=== PATIENT | female | born 1955 | race Caucasian/White ===

== ENCOUNTER 2018-05-12 06:32 | Emergency (ER) | payer MEDICARE, MEDICAID ==
[~2018-05-12] VITALS: Ht 170.2 cm; Wt 90.3 kg
[2018-05-12 06:34] VITALS: BP 143/83
[2018-05-12] MEDS ORDERED: KETOROLAC 30 MG/1 ML ONE (08:18)
[2018-05-12] MEDS ORDERED: METHOCARBAMOL 750 MG TABLET ONE (08:18)
[2018-05-12] MEDS ORDERED: METHOCARBAMOL 750 MG TABLET PO ONE (08:30)
[2018-05-12] MEDS ORDERED: KETOROLAC 30 MG/1 ML IM ONE (08:30)
== END 2018-05-12 09:22 | disposition home or self-care (01) ==
LOC: ED 09:15
DX: S16.1XXA Strain of muscle, fascia and tendon at neck level, initial encounter (principal); M26.621 Arthralgia of right temporomandibular joint; X58.XXXA Exposure to other specified factors, initial encounter; Y93.89 Activity, other specified; Y92.89 Other specified places as the place of occurrence of the external cause; Y99.8 Other external cause status
CPT/HCPCS: 72050; 96372; 99284; J1885

== ENCOUNTER 2019-04-19 23:16 | Emergency (ER) | payer MEDICARE, MEDICAID ==
[~2019-04-19] VITALS: Ht 170.2 cm; Wt 86.5 kg
--- NOTE | 2019-04-19 23:27 | NUR ---
"i think i got pneumonia." States pressure in chestx3 days w/ coughing up green phlegm. Unknown fevers at home. per triage note
--- NOTE | 2019-04-19 23:28 | NUR ---
pt up ambulated to
[2019-04-19] MEDS ORDERED: RISP2TAB35 PO (23:43)
[2019-04-19] MEDS ORDERED: SERT100T PO (23:43)
[2019-04-19] MEDS ORDERED: OXYB5TAB7 PO (23:43)
--- NOTE | 2019-04-19 23:45 | NUR ---
pt came back from imaging
--- NOTE | 2019-04-20 00:22 | NUR ---
dc ordr was received
[2019-04-20 00:50] VITALS: BP 110/62
--- NOTE | 2019-04-20 00:50 | NUR ---
given dc instruction pt understood pt ambulated to check out
== END 2019-04-20 00:52 | disposition home or self-care (01) ==
LOC: ED 04-20 00:35
DX: J02.9 Acute pharyngitis, unspecified (principal); J04.0 Acute laryngitis; Z72.9 Problem related to lifestyle, unspecified; F17.210 Nicotine dependence, cigarettes, uncomplicated
CPT/HCPCS: 71046; 93005; 99283

== ENCOUNTER 2020-03-07 16:37 | Inpatient (IN) | payer OTHER, MEDICAID ==
[~2020-03-07] VITALS: Ht 170.2 cm; Wt 88.3 kg
[~2020-03-07 16:37] MED LIST: OXYB5TAB10 PO; RISP2TAB35 PO; SERT100T PO
--- NOTE | 2020-03-07 17:32 | NUR ---
Patient brought in by [facility] as a transfer from [facility], received report that patient had a large bowel movement followed by a large jigna red blood movement. Patient was worked up at [facility], and received that patient had blood work done and her hemaglobin level was greater than 11 g/dL. Also received report that patient had received 80 mg protonix. Patient resting, awaiting assessment by physician. Physican to bedside, awaiting gastroenterology consult.
[2020-03-07] MEDS ORDERED: PANTOPRAZOLE 80 MG in SODIUM CHLORIDE 0.9% 100 ML IV SCH (17:34)
[2020-03-07 17:55] LABS: BASOPHILS # (AUTO) 0.04 x10^3/uL (0-0.1); BASOPHILS % (AUTO) 0 % (0-1); EOSINOPHILS # (AUTO) 0.06 x10^3/uL (0-0.4); EOSINOPHILS % (AUTO) 0 % (1-7); LYMPHOCYTES # (AUTO) 0.58 x10^3/uL (1-3.4); LYMPHOCYTES % (AUTO) 4 % (22-44); MD NO; MEAN CORPUSCULAR HEMOGLOBIN 29.8 pg (27.0-34.8); MEAN CORPUSCULAR HGB CONC 32.8 g/dL (32.4-35.8); MEAN CORPUSCULAR VOLUME 90.8 fL (80-100); MONOCYTES % (AUTO) 3 % (2-9); NEUTROPHILS # (AUTO) 14.38 x10^3/uL (1.8-6.8); NEUTROPHILS % (AUTO) 93 % (42-75); PLATELET COUNT 310 x10^3/uL (130-400); RED BLOOD COUNT 3.71 x10^6/uL (3.82-5.3); RED CELL DISTRIBUTION WIDTH 14.5 % (9.6-15.2)
[2020-03-07] MEDS ORDERED: SODIUM CHLORIDE FLUSH 10ML SYR IVF ONE (18:00)
[2020-03-07 18:06] LABS: ALBUMIN 3.1 g/dL (3.4-5.0); ANION GAP 5 mmol/L (5-15); CALCIUM 9.1 mg/dL (8.5-10.1); CHLORIDE 111 mmol/L (98-107); CREATININE 1.02 mg/dL (0.55-1.02)
--- NOTE | 2020-03-07 18:59 | NUR ---
carlos enrique rn: pt has [employer] insurance. [place] supervisor of [facility] [place] called (Feliz) @ [phone] Per Feliz, they are refusing transfer of pt at this time.
[2020-03-07] MEDS ORDERED: ONDANSETRON 2MG/ML, 2ML IVPush PRN (19:30)
[2020-03-07] MEDS ORDERED: morphine SULFATE 10 MG/ML, 1ML IVPush PRN (19:30)
[2020-03-07] MEDS ORDERED: ACETAMINOPHEN 325 MG TABLET PO PRN (19:30)
[2020-03-07] MEDS: PANTOPRAZOLE 80 MG in SODIUM CHLORIDE 0.9% 100 ML IV SCH (20:22)
[2020-03-07 22:17] VITALS: BP 110/67
[2020-03-07] MEDS: DIVALPROEX 500 MG TABLET.DR PO SCH (22:27)
[2020-03-07] MEDS: GABAPENTIN 300 MG CAPSULE PO SCH (22:27)
[2020-03-07 22:29] VITALS: BP 110/67
[2020-03-07] MEDS ORDERED: GOLYTELY 4,000ML ORAL.SOL PO ONE (22:30)
[2020-03-08 01:37] VITALS: BP 113/72
[2020-03-08 04:20] LABS: CLOSTRIDIUM DIFFICILE ANTIGEN NEGATIVE; CLOSTRIDIUM DIFFICILE TOXIN NEGATIVE (Negative)
[2020-03-08 05:24] LABS: MEAN CORPUSCULAR HEMOGLOBIN 29.6 pg (27.0-34.8); MEAN CORPUSCULAR HGB CONC 32.3 g/dL (32.4-35.8); MEAN CORPUSCULAR VOLUME 91.7 fL (80-100); PLATELET COUNT 289 x10^3/uL (130-400); RED BLOOD COUNT 3.42 x10^6/uL (3.82-5.3); RED CELL DISTRIBUTION WIDTH 14.1 % (9.6-15.2)
[2020-03-08 05:33] LABS: ANION GAP 4 mmol/L (5-15); CALCIUM 9.2 mg/dL (8.5-10.1); CHLORIDE 111 mmol/L (98-107); CREATININE 0.86 mg/dL (0.55-1.02)
[2020-03-08] MEDS: PANTOPRAZOLE 80 MG in SODIUM CHLORIDE 0.9% 100 ML IV SCH ×2 (05:46→15:58)
[2020-03-08 05:54] LABS: BASOPHILS # (AUTO) 0.03 x10^3/uL (0-0.1); BASOPHILS % (AUTO) 0 % (0-1); EOSINOPHILS # (AUTO) 0.01 x10^3/uL (0-0.4); EOSINOPHILS % (AUTO) 0 % (1-7); LYMPHOCYTES # (AUTO) 0.94 x10^3/uL (1-3.4); LYMPHOCYTES % (AUTO) 6 % (22-44); MD SCAN; MONOCYTES # (AUTO) 0.53 x10^3/uL (0.2-0.8); MONOCYTES % (AUTO) 3 % (2-9); NEUTROPHILS # (AUTO) 15.76 x10^3/uL (1.8-6.8); NEUTROPHILS % (AUTO) 91 % (42-75)
[2020-03-08 07:36] VITALS: BP 126/66
[2020-03-08] MEDS ORDERED: FUROSEMIDE 20 MG TABLET PO SCH (09:00)
[2020-03-08] MEDS ORDERED: CHLORHEXIDINE 15 ML UDC ONE (09:18)
[2020-03-08] MEDS ORDERED: NEOSTIGMINE 1 MG/ML, 10ML ONE (09:30)
[2020-03-08] MEDS ORDERED: SUCCINYLCHOLINE 20 MG/ML, 10ML ONE (09:30)
[2020-03-08] MEDS ORDERED: CEFAZOLIN 1,000 MG ONE (09:30)
[2020-03-08] MEDS ORDERED: ROCURONIUM 10MG/ML,5ML ONE (09:30)
[2020-03-08] MEDS ORDERED: GLYCOPYRROLATE 0.2MG/1ML, 5ML ONE (09:30)
[2020-03-08] MEDS ORDERED: DEXAMETHASONE 4 MG/ML, 1ML ONE (09:30)
[2020-03-08] MEDS ORDERED: PROPOFOL 10 MG/ML, 20ML ONE (09:30)
[2020-03-08] MEDS ORDERED: FENTANYL PF 100 MCG/2ML ONE (09:30)
[2020-03-08] MEDS ORDERED: CHLORHEXIDINE 15 ML UDC MM ONE (09:30)
[2020-03-08] MEDS ORDERED: ONDANSETRON 2MG/ML, 2ML ONE (09:30)
[2020-03-08 09:43] LABS: HCT (SEDRATE) 31.4 % (34.6-47.8)
[2020-03-08] MEDS ORDERED: OXYcodone 5 MG/5 ML ORAL.SOL UDC PO PRN (10:00)
[2020-03-08] MEDS ORDERED: LABETALOL 5MG/ML, 20ML IV PRN (10:00)
[2020-03-08] MEDS ORDERED: FENTANYL PF 100 MCG/2ML IV PRN (10:00)
[2020-03-08] MEDS ORDERED: ACETAMINOPHEN 325 MG TABLET PO PRN (10:00)
[2020-03-08] MEDS ORDERED: ONDANSETRON 2MG/ML, 2ML IV PRN (10:00)
[2020-03-08] MEDS ORDERED: hydrALAzine 20 MG/ML, 1ML IV PRN (10:00)
[2020-03-08] MEDS ORDERED: LORazepam 2 MG/ML, 1ML IVPush PRN (10:00)
[2020-03-08] MEDS ORDERED: ONDANSETRON ODT 8 MG PO PRN (10:00)
[2020-03-08] MEDS ORDERED: HYDROmorphone 2 MG/ML, 1ML IVPush PRN (10:00)
[2020-03-08] MEDS ORDERED: PROMETHAZINE 25 MG/ML, 1ML IV PRN (10:00)
[2020-03-08] MEDS ORDERED: PROMETHAZINE 25 MG SUPP PR PRN (10:00)
[2020-03-08] MEDS ORDERED: EPHEDRINE 50 MG/ML, 1ML ONE (10:29)
[2020-03-08] MEDS ORDERED: LIDOCAINE-MPF 2% ,5ML ONE ×2 (10:29)
[2020-03-08] MEDS: DIVALPROEX 500 MG TABLET.DR PO SCH ×2 (11:38→20:04)
[2020-03-08] MEDS: QUETIAPINE 200 MG TABLET PO SCH (11:39)
[2020-03-08] MEDS: GABAPENTIN 300 MG CAPSULE PO SCH ×2 (11:39→20:04)
[2020-03-08] MEDS: SERTRALINE 50MG TABLET PO SCH (11:39)
[2020-03-08 14:37] VITALS: BP 82/51
[2020-03-08 19:16] VITALS: BP 100/62
[2020-03-09 00:36] VITALS: BP 105/65
[2020-03-09] MEDS: PANTOPRAZOLE 80 MG in SODIUM CHLORIDE 0.9% 100 ML IV SCH (02:53)
[2020-03-09] MEDS ORDERED: methylPREDNISolone SOD SUCC 40 MG/ML IV SCH (06:00)
[2020-03-09] MEDS ORDERED: LACTATED RINGERS 1,000 ML IV SCH (06:00)
[2020-03-09 06:42] LABS: MEAN CORPUSCULAR HEMOGLOBIN 30.3 pg (27.0-34.8); MEAN CORPUSCULAR HGB CONC 32.8 g/dL (32.4-35.8); MEAN CORPUSCULAR VOLUME 92.3 fL (80-100); MEAN PLATELET VOLUME 7.8 fL (7.4-10.4); PLATELET COUNT 293 x10^3/uL (130-400); RED BLOOD COUNT 3.06 x10^6/uL (3.82-5.3); RED CELL DISTRIBUTION WIDTH 14.7 % (9.6-15.2)
[2020-03-09 06:47] LABS: ANION GAP 3 mmol/L (5-15); CALCIUM 8.9 mg/dL (8.5-10.1); CHLORIDE 112 mmol/L (98-107); CREATININE 0.78 mg/dL (0.55-1.02)
[2020-03-09 07:21] VITALS: BP 123/78
[2020-03-09 07:24] LABS: BASOPHILS # (AUTO) 0.04 x10^3/uL (0-0.1); BASOPHILS % (AUTO) 0 % (0-1); EOSINOPHILS # (AUTO) 0.01 x10^3/uL (0-0.4); EOSINOPHILS % (AUTO) 0 % (1-7); LYMPHOCYTES # (AUTO) 1.34 x10^3/uL (1-3.4); LYMPHOCYTES % (AUTO) 9 % (22-44); MD SCAN; MONOCYTES # (AUTO) 0.83 x10^3/uL (0.2-0.8); MONOCYTES % (AUTO) 5 % (2-9); NEUTROPHILS # (AUTO) 13.32 x10^3/uL (1.8-6.8); NEUTROPHILS % (AUTO) 86 % (42-75)
[2020-03-09] MEDS: QUETIAPINE 200 MG TABLET PO SCH (08:04)
[2020-03-09] MEDS: GABAPENTIN 300 MG CAPSULE PO SCH ×2 (08:04→19:57)
[2020-03-09] MEDS: SERTRALINE 50MG TABLET PO SCH (08:04)
[2020-03-09] MEDS: DIVALPROEX 500 MG TABLET.DR PO SCH ×2 (08:04→19:57)
[2020-03-09 14:10] VITALS: BP 118/74
[2020-03-09 19:35] VITALS: BP 104/66
[2020-03-09] MEDS: MESALAMINE 400 MG CAPSULE.DR PO SCH (19:57)
[2020-03-10 00:23] VITALS: BP 100/65
[2020-03-10 06:39] VITALS: BP 123/76
[2020-03-10] MEDS: MESALAMINE 400 MG CAPSULE.DR PO SCH (08:33)
[2020-03-10] MEDS: DIVALPROEX 500 MG TABLET.DR PO SCH (08:34)
[2020-03-10] MEDS: GABAPENTIN 300 MG CAPSULE PO SCH (08:34)
[2020-03-10] MEDS: QUETIAPINE 200 MG TABLET PO SCH (08:34)
[2020-03-10] MEDS: SERTRALINE 50MG TABLET PO SCH (08:34)
[2020-03-10] MEDS ORDERED: methylPREDNISolone SOD SUCC 40 MG/ML IV SCH (09:00)
[2020-03-10] MEDS ORDERED: MESA400C2 PO (09:37)
[2020-03-10] MEDS ORDERED: METH4TAB6 PO (09:37)
[2020-03-10] MEDS ORDERED: DIVA-61 PO (09:37)
== END 2020-03-10 11:36 | disposition home or self-care (01) | DRG 394 ==
LOC: ED 18:30 → EDIP 18:46 → 3N 20:03
PROVIDERS: ADMIT Internal Medicine; ATTEND Hospitalist
PROC: 0DBM8ZX Excision of Descending Colon, Via Natural or Artificial Opening Endoscopic, Diagnostic (ICD-10-PCS; 2020-03-08)
PROC: 0DBN8ZX Excision of Sigmoid Colon, Via Natural or Artificial Opening Endoscopic, Diagnostic (ICD-10-PCS; 2020-03-08)
PROC: 0DJ08ZZ Inspection of Upper Intestinal Tract, Via Natural or Artificial Opening Endoscopic (ICD-10-PCS; principal; 2020-03-08 09:30)
DX: K55.9 Vascular disorder of intestine, unspecified (principal); C56.9 Malignant neoplasm of unspecified ovary; G62.9 Polyneuropathy, unspecified; K64.4 Residual hemorrhoidal skin tags; K64.8 Other hemorrhoids; K59.00 Constipation, unspecified; D64.9 Anemia, unspecified; F31.9 Bipolar disorder, unspecified; G89.29 Other chronic pain; J44.9 Chronic obstructive pulmonary disease, unspecified; K21.9 Gastro-esophageal reflux disease without esophagitis; Z72.0 Tobacco use; Z79.899 Other long term (current) drug therapy; Z85.42 Personal history of malignant neoplasm of other parts of uterus; Z85.43 Personal history of malignant neoplasm of ovary; Z90.710 Acquired absence of both cervix and uterus; Z98.51 Tubal ligation status; Z90.722 Acquired absence of ovaries, bilateral
CPT/HCPCS: 36415; 80048; 82040; 85025; 85651; 86140; 87324; 88305; 89055; 93005; G0378; J0690; J1100; J2405; J2704; J2710; J3010; C9113; J0330; J2920

== ENCOUNTER → 2021-01-15 | Outpatient (CLI) | payer MEDICARE, MEDICAID ==
[~2021-01-15] MED LIST changes: +DIVA-61 PO; +MESA400C2 PO; +METH4TAB6 PO
[2021-01-15 15:11] LABS: BASOPHILS % (AUTO) 0 % (0-1); EOSINOPHILS % (AUTO) 2 % (1-7); LYMPHOCYTES % (AUTO) 19 % (22-44); MEAN CORPUSCULAR HEMOGLOBIN 28.9 pg (27.0-34.8); MEAN CORPUSCULAR HGB CONC 32.7 g/dL (32.4-35.8); MEAN PLATELET VOLUME 6.7 fL (7.4-10.4); MONOCYTES % (AUTO) 15 % (2-9); NEUTROPHILS % (AUTO) 64 % (42-75); PLATELET COUNT 259 x10^3/uL (130-400); RED BLOOD COUNT 3.34 x10^6/uL (3.82-5.3)
[2021-01-15 15:15] LABS: MD NO
== END | disposition home or self-care (01) ==
LOC: RAD 14:01
PROVIDERS: ATTEND Obstetrics & Gynecology
DX: C54.1 Malignant neoplasm of endometrium (principal); I80.223 Phlebitis and thrombophlebitis of popliteal vein, bilateral; G89.18 Other acute postprocedural pain
CPT/HCPCS: 36415; 85025; 93970

== ENCOUNTER 2021-03-08 08:59 | Outpatient (CLI) | payer MEDICARE, MEDICAID ==
[2021-03-08] MEDS ORDERED: OMNIPAQUE 350 MG/ML, 100ML BOTTLE ONE (09:45)
== END 2021-03-08 23:59 | disposition home or self-care (01) ==
LOC: CFH 08:59
PROVIDERS: ATTEND Obstetrics & Gynecology
DX: C54.1 Malignant neoplasm of endometrium (principal); G89.18 Other acute postprocedural pain; I82.890 Acute embolism and thrombosis of other specified veins; I95.9 Hypotension, unspecified; N17.9 Acute kidney failure, unspecified; M50.33 Other cervical disc degeneration, cervicothoracic region; M51.36 Other intervertebral disc degeneration, lumbar region; E04.2 Nontoxic multinodular goiter; M43.8X5 Other specified deforming dorsopathies, thoracolumbar region; Z51.11 Encounter for antineoplastic chemotherapy; Z51.0 Encounter for antineoplastic radiation therapy
CPT/HCPCS: 71260; 74177; Q9967

== ENCOUNTER → 2021-03-20 | Outpatient (CLI) | payer MEDICARE, MEDICAID | END | disposition home or self-care (01) | LOC: RAD 13:52 | PROVIDERS: ATTEND Obstetrics & Gynecology | DX: C54.1 Malignant neoplasm of endometrium (principal); I70.0 Atherosclerosis of aorta; I82.890 Acute embolism and thrombosis of other specified veins; I95.9 Hypotension, unspecified; N17.9 Acute kidney failure, unspecified; G89.18 Other acute postprocedural pain; Z51.0 Encounter for antineoplastic radiation therapy; Z51.11 Encounter for antineoplastic chemotherapy | CPT/HCPCS: 76706; 93970 ==